=== PATIENT | female | born 1975 | race Caucasian/White ===

== ENCOUNTER 2017-12-23 21:59 | Emergency (ER) | payer MEDICAID ==
[~2017-12-23] VITALS: Ht 172.7 cm; Wt 65.9 kg
[2017-12-23 22:03] VITALS: BP 132/88
[2017-12-23] MEDS ORDERED: CEPH500C5 PO (23:08)
[2017-12-23] MEDS ORDERED: SULF1TAB49 PO (23:08)
== END 2017-12-23 23:26 | disposition home or self-care (01) ==
LOC: ER 22:00
DX: L03.115 Cellulitis of right lower limb (principal); F17.200 Nicotine dependence, unspecified, uncomplicated
CPT/HCPCS: 99283

== ENCOUNTER 2020-04-27 07:13 | Emergency (ER) | payer MEDICAID ==
[~2020-04-27] VITALS: Ht 172.7 cm; Wt 69.1 kg
[2020-04-27 08:00] LABS: BASOPHILS # (AUTO) 0.1 X10'3 (0-0.2); BASOPHILS % (AUTO) 1.1 % (0-1); EOSINOPHILS # (AUTO) 0.2 X10'3 (0-0.9); EOSINOPHILS % (AUTO) 2.8 % (0-6); HEMATOCRIT 36.9 % (35.0-45.0); HEMOGLOBIN 12.2 g/dl (12.0-16.0); LYMPHOCYTES # (AUTO) 1.1 X10'3 (1.1-4.8); LYMPHOCYTES % (AUTO) 17.7 % (21-51); MEAN CORPUSCULAR HEMOGLOBIN 26.8 PG (27.0-31.0); MEAN CORPUSCULAR HGB CONC 33.1 g/dL (33.0-36.5); MEAN PLATELET VOLUME 8.2 FL (7.4-10.4); MONOCYTES # (AUTO) 0.5 X10'3 (0-0.9); MONOCYTES % (AUTO) 7.9 % (2-12); NEUTROPHILS # (AUTO) 4.3 X10'3 (1.8-7.7); NEUTROPHILS % (AUTO) 70.5 % (42-75); PLATELET COUNT 329 X10'3 (140-440); RED BLOOD COUNT 4.56 X10'6 (4.20-5.60); RED CELL DISTRIBUTION WIDTH 18.3 % (11.5-14.5); WHITE BLOOD COUNT 6.1 X10'3 (4.5-11.0)
[2020-04-27 08:15] LABS: ALANINE AMINOTRANSFERASE 88 U/L (12-78); ALBUMIN 3.5 G/DL (3.4-5.0); ALKALINE PHOSPHATASE 64 IU/L (46-116); ANION GAP 10 (8-16); ASPARTATE AMINO TRANSFERASE 43 U/L (10-37); BILIRUBIN,TOTAL 0.6 MG/DL (0.1-1.0); BLOOD UREA NITROGEN 9 MG/DL (7-18); BUN/CREATININE RATIO 11.7 (6.6-38.0); CALCIUM 8.7 MG/DL (8.5-10.1); CHLORIDE 105 MMOL/L (99-107); CREATININE 0.77 MG/DL (0.40-0.90); GLUCOSE 104 MG/DL (70-104); POTASSIUM 3.7 MMOL/L (3.5-5.1); SODIUM 141 MMOL/L (135-145); TOTAL CARBON DIOXIDE 26.1 MMOL/L (24-32); TOTAL PROTEIN 7.1 G/DL (6.4-8.2); eGFR 81 ML/MIN
[2020-04-27 08:43] VITALS: BP 130/78
== END 2020-04-27 08:45 | disposition home or self-care (01) ==
LOC: ER 07:13
DX: R07.89 Other chest pain (principal); R00.2 Palpitations; R19.7 Diarrhea, unspecified; F12.90 Cannabis use, unspecified, uncomplicated; Z98.51 Tubal ligation status; Z98.890 Other specified postprocedural states; Z72.89 Other problems related to lifestyle
CPT/HCPCS: 36415; 71045; 80053; 84484; 85025; 93005; 99285

== ENCOUNTER 2020-05-19 12:23 | Emergency (ER) | payer MEDICAID ==
[~2020-05-19] VITALS: Ht 172.7 cm; Wt 68.5 kg
[2020-05-19 13:22] VITALS: BP 138/78
[2020-05-19] MEDS ORDERED: CLIN300C70 PO (14:34)
--- NOTE | 2020-05-19 15:10 | NUR ---
Patient seen and assessed by provider.
== END 2020-05-19 15:14 | disposition home or self-care (01) ==
LOC: ER 12:24
DX: K04.7 Periapical abscess without sinus (principal); K02.9 Dental caries, unspecified; F12.90 Cannabis use, unspecified, uncomplicated; Z98.890 Other specified postprocedural states; Z98.51 Tubal ligation status; Z79.899 Other long term (current) drug therapy
CPT/HCPCS: 99283

== ENCOUNTER 2021-06-15 11:22 | Emergency (ER) | payer MEDICAID ==
[~2021-06-15] VITALS: Ht 172.7 cm; Wt 74.5 kg
[2021-06-15 11:46] VITALS: BP 157/70
[2021-06-15] MEDS ORDERED: NAPR-56 PO (11:52)
[2021-06-15] MEDS ORDERED: CLIN150C2 PO (11:52)
== END 2021-06-15 12:57 | disposition home or self-care (01) ==
LOC: ER 11:22
DX: K08.89 Other specified disorders of teeth and supporting structures (principal); F12.90 Cannabis use, unspecified, uncomplicated; Z98.51 Tubal ligation status; Z98.890 Other specified postprocedural states; Z72.89 Other problems related to lifestyle; Z88.0 Allergy status to penicillin; Z79.2 Long term (current) use of antibiotics; Z79.899 Other long term (current) drug therapy
CPT/HCPCS: 99283